=== PATIENT | female | born 1995 | race Caucasian/White ===

== ENCOUNTER 2019-02-26 01:46 | Emergency (ER) | payer SELFPAY ==
[~2019-02-26] VITALS: Ht 167.6 cm; Wt 54.5 kg
[2019-02-26] MEDS ORDERED: FERRAPLUS 90 PO (02:07)
[2019-02-26 02:11] LABS: HEMATOCRIT 39.5 % (37.0-47.0); HEMOGLOBIN 13.5 g/dl (12.0-16.0); IMMATURE GRANULOCYTES 0.4 % (0.0-5.0); MEAN CORPUSCULAR HGB 30.4 pG CALC (26.0-32.0); MEAN CORPUSCULAR HGB CONC 34.2 g/L CALC (32.0-36.0); NEUT# 4.19 thou/uL (2.00-7.15); RED BLOOD COUNT 4.44 mill/uL (4.20-5.60); RED CELL DISTRI WIDTH 12.5 % (11.5-15.5)
[2019-02-26 02:26] LABS: ALBUMIN 5.2 g/dL (3.2-5.0); ALKALINE PHOSPHATASE 110 u/l (38-126); ANION GAP 21 (6-22 (CALC)); BILIRUBIN, TOTAL 0.4 mg/dL (0.0-1.4); BUN 17 mg/dL (7-17); BUN/CREATININE RATIO 16 (12-20 (CALC)); CARBON DIOXIDE 24 mmol/l (22-30); CHLORIDE 106 mmol/l (95-108); CREATININE 1.1 mg/dL (0.5-1.0); GFR > 60 ML/MIN (>=60 (CALC)); GFR FOR AFR.AMER. > 60 ML/MIN (>=60 (CALC)); POTASSIUM 4.4 mmol/l (3.5-5.1); SGOT/AST 23 u/l (14-36); SODIUM 147 mmol/l (137-146); TOTAL PROTEIN 8.6 g/dL (6.3-8.2)
[2019-02-26 02:27] LABS: URINE BILIRUBIN - DIPSTICK NEGATIVE (NEGATIVE); URINE BLOOD DIPSTICK TRACE-INTACT (NEGATIVE); URINE COLOR YELLOW; URINE GLUCOSE - DIPSTICK NEGATIVE (NEGATIVE); URINE KETONE NEGATIVE (NEGATIVE); URINE LEUK ESTERASE TRACE (NEGATIVE); URINE NITRITE - DIPSTICK NEGATIVE (Negative); URINE PROTEIN - DIPSTICK NEGATIVE (NEG-TRACE); URINE SPECIFIC GRAVITY <=1.005; URINE UROBILINOGEN - DIPSTICK 0.2 E.U./dL (0.2)
[2019-02-26 02:29] LABS: BARBITURATES NEGATIVE (NEGATIVE); COCAINE NEGATIVE (NEGATIVE); METHADONE NEGATIVE (NEGATIVE); OXCYCODONE NEGATIVE (NEGATIVE); TETRAHYDROCANNABIONOL NEGATIVE (NEGATIVE); TRICYLIC ANTIDEPRESSANTS NEGATIVE (NEGATIVE)
[2019-02-26 04:13] VITALS: BP 116/68
== END 2019-02-26 04:05 | disposition home or self-care (01) | DRG 880 ==
LOC: ED 01:46
PROVIDERS: Emergency Medicine
DX: F41.9 Anxiety disorder, unspecified (principal); F10.10 Alcohol abuse, uncomplicated

== ENCOUNTER 2021-06-10 12:04 | Emergency (ER) | payer MEDICAID ==
[~2021-06-10] VITALS: Ht 167.6 cm; Wt 59.8 kg
[~2021-06-10 12:04] MED LIST: FERRAPLUS 90 PO
[2021-06-10 13:50] VITALS: BP 98/63
== END 2021-06-10 13:50 | disposition home or self-care (01) ==
LOC: ED 12:04
DX: O98.512 Other viral diseases complicating pregnancy, second trimester (principal); U07.1 COVID-19; Z3A.18 18 weeks gestation of pregnancy

== ENCOUNTER 2021-08-05 23:43 | Emergency (ER) | payer MEDICAID ==
[~2021-08-05] VITALS: Ht 167.6 cm; Wt 66.0 kg
[2021-08-06] MEDS ORDERED: PREDNISONE50 MG PO (00:57)
[2021-08-06 02:22] VITALS: BP 101/69
[2021-08-06] MEDS ORDERED: PRENATAL MULTI +DHA PO (02:24)
== END 2021-08-06 02:36 | disposition home or self-care (01) ==
LOC: ED 23:43
DX: O99.719 Diseases of the skin and subcutaneous tissue complicating pregnancy, unspecified trimester (principal); L50.0 Allergic urticaria; Z3A.00 Weeks of gestation of pregnancy not specified

== ENCOUNTER 2022-08-05 22:32 | Emergency (ER) | payer MEDICAID ==
[~2022-08-05] VITALS: Ht 167.6 cm; Wt 66.6 kg
[~2022-08-05 22:32] MED LIST changes: +PREDNISONE50 MG PO; +PRENATAL MULTI +DHA PO
[2022-08-05 22:47] VITALS: BP 102/65
[2022-08-05] MEDS ORDERED: TRI LO MILI (22:54)
[2022-08-05 23:01] VITALS: BP 108/64
[2022-08-05 23:15] VITALS: BP 104/64
[2022-08-05 23:17] LABS: BASO% 0.4 % (0-3); EOS% 2.1 % (0-8); HEMATOCRIT 35.1 % (37.0-47.0); HEMOGLOBIN 11.7 g/dl (12.0-16.0); IMMATURE GRANULOCYTES 0.1 % (0.0-5.0); LYMPH% 32.8 % (15-41); MEAN CELL VOLUME 86.7 fL CALC (80.0-100.0); MEAN CORPUSCULAR HGB 28.9 pG CALC (26.0-32.0); MEAN CORPUSCULAR HGB CONC 33.3 g/dL CAL (32.0-36.0); MONO% 9.1 % (2-13); NEUT# 5.01 thou/uL (2.00-7.15); NEUT% 55.5 % (42-76); RED BLOOD COUNT 4.05 mill/uL (4.20-5.60); RED CELL DISTRI WIDTH 11.7 % (11.5-15.5)
[2022-08-05 23:30] VITALS: BP 102/68
[2022-08-05 23:33] LABS: D-DIMER 1.29 mg/L (0.19-0.60)
[2022-08-05 23:37] LABS: ALBUMIN 4.6 g/dL (3.2-5.0); ALKALINE PHOSPHATASE 69 u/l (38-126); BILIRUBIN, TOTAL 0.4 mg/dL (0.02-1.3); BUN 13 mg/dL (7-17); BUN/CREATININE RATIO 14 (12-20 (CALC)); CARBON DIOXIDE 26 mmol/l (22-30); CHLORIDE 102 mmol/l (95-108); GFR FOR AFR.AMER. > 60 ML/MIN (>=60 (CALC)); GFR OTHER RACES > 60 ML/MIN (>=60 (CALC)); TOTAL PROTEIN 7.6 g/dL (6.3-8.2)
[2022-08-05 23:40] LABS: ACT PARTIAL THROMBO TIME 24.3 SECONDS (20.0-32.5); PROTHROMBIN TIME 9.7 SECONDS (9.0-12.5)
[2022-08-05 23:45] VITALS: BP 108/69
[2022-08-06] VITALS: BP 106/64
[2022-08-06 00:08] LABS: ANION GAP 10 (6-22 (CALC)); POTASSIUM 3.3 mmol/l (3.5-5.1); SGOT/AST 41 u/l (14-36); SODIUM 135 mmol/l (137-146)
[2022-08-06 00:15] VITALS: BP 104/65
[2022-08-06 00:30] VITALS: BP 103/61
[2022-08-06 00:45] VITALS: BP 112/52
[2022-08-06 01:00] VITALS: BP 110/75
[2022-08-06] MEDS ORDERED: ELIQUIS5 MG PO (01:06)
[2022-08-06 01:39] VITALS: BP 110/75
== END 2022-08-06 01:56 | disposition home or self-care (01) ==
LOC: ED 22:32
PROVIDERS: Family Medicine
DX: R55 Syncope and collapse (principal); I49.8 Other specified cardiac arrhythmias; Z79.3 Long term (current) use of hormonal contraceptives